=== PATIENT | female | born 1930 | race Caucasian/White ===

== ENCOUNTER 2018-04-26 10:25 | Emergency (ER) | payer MEDICARE, BC ==
[~2018-04-26] VITALS: Ht 167.6 cm; Wt 78.6 kg
--- NOTE | 2018-04-26 10:45 | NUR ---
PT BIBRA C/O R shoulder pain s/p trip and fall. Denies loc, neck, or back pain. ALERT AND ORIENTED x 3, FORGETFULL, CAREGIVER AT BEDSIDE. ON ROOM AIR, 02 SAT 98%, BREATHING EVENLY AND UNLABORED. HOOKED ON THE MONITOR. KEPT COMFORTABLE. WILL CONTINUE TO MONITOR ACCORDINGLY.
[2018-04-26] MEDS ORDERED: IV NS 0.9% 500 ML BAG IV ONE (11:00)
[2018-04-26] MEDS ORDERED: oxyCODONE/APAP (5/325 MG) 1 UDTAB TABLET PO ONE (11:00)
[2018-04-26] MEDS ORDERED: KETOROLAC TROMETHAMINE INJ 30 MG/ML VIAL IV ONE (11:00)
[2018-04-26 11:09] LABS: BASOPHILS % (AUTO) 0.4 % (0.0-2.0); EOSINOPHILS % (AUTO) 0.5 % (0.0-6.0); HEMATOCRIT 45 % (33-45); HEMOGLOBIN 14.9 g/dL (11.5-14.8); LYMPHOCYTES # (AUTO) 0.9 /CMM (0.8-4.8); LYMPHOCYTES % (AUTO) 11.5 % (20.0-44.0); MEAN CORPUSCULAR HGB CONC 33 g/dl (31.0-36.0); MEAN CORPUSCULAR VOLUME 87 fL (82-100); MONOCYTES # (AUTO) 0.6 /CMM (0.1-1.30); MONOCYTES % (AUTO) 8.1 % (2.0-12.0); NEUTROPHILS # (AUTO) 6.1 /CMM (1.8-8.9); NEUTROPHILS % (AUTO) 79.5 % (43.0-81.0); PLATELET COUNT (AUTO) 141 /CMM (150-450); RED BLOOD CELL COUNT(AUTO) 5.14 MIL/uL (4.0-5.2); WHITE BLOOD COUNT (AUTO) 7.7 K/uL (4.3-11.0)
[2018-04-26] MEDS ORDERED: oxyCODONE/APAP (5/325 MG) 1 UDTAB TABLET ONE (11:13)
[2018-04-26] MEDS ORDERED: KETOROLAC TROMETHAMINE 15 MG/ML VIAL ONE (11:13)
[2018-04-26 11:17] LABS: CARBON DIOXIDE 27 mmol/L (21-32); CHLORIDE 105 mmol/L (98-107); CREATININE 0.9 mg/dL (0.6-1.3); GLUCOSE 124 mg/dL (74-106); SODIUM SERUM 140 mmol/L (136-145); UREA NITROGEN, BLOOD 16 mg/dL (7-18)
--- NOTE | 2018-04-26 12:34 | NUR ---
Called [facility] and a page was Devyn Guan
--- NOTE | 2018-04-26 13:03 | NUR ---
ORTHO ON-CALL PAGED AGAIN
--- NOTE | 2018-04-26 13:29 | NUR ---
Paged Back up Orthopedic circulation manager for consult
[2018-04-26] MEDS ORDERED: LORAZEPAM 0.5 MG TABLET PO ONE (14:00)
[2018-04-26] MEDS ORDERED: LORAZEPAM 1 MG TABLET ONE (14:09)
--- NOTE | 2018-04-26 14:30 | NUR ---
pt wheeled to ct scan
--- NOTE | 2018-04-26 14:38 | NUR ---
Ortho doctor on site and will go to CT scan to speak to the patient and family member.
--- NOTE | 2018-04-26 14:41 | NUR ---
pt came back from ct.
[2018-04-26 15:38] VITALS: BP 133/80
--- NOTE | 2018-04-26 15:39 | NUR ---
Patient discharged to home in stable condition. Written and verbal after care instructions given. Patient verbalizes understanding of instruction.IV removed. Catheter intact and site benign. Pressure and 4x4 applied to site. No bleeding noted.
== END 2018-04-26 15:39 | disposition home or self-care (01) ==
LOC: ER 10:27
DX: S42.291A Other displaced fracture of upper end of right humerus, initial encounter for closed fracture (principal); S43.491A Other sprain of right shoulder joint, initial encounter; W01.0XXA Fall on same level from slipping, tripping and stumbling without subsequent striking against object, initial encounter; Y93.01 Activity, walking, marching and hiking; Y92.89 Other specified places as the place of occurrence of the external cause; Y99.8 Other external cause status
CPT/HCPCS: 36415; 71045; 73030; 73200; 80048; 85025; 85730; 96374; 99284; A4606; J1885; J7040